=== PATIENT | female | born 1985 | race African-American/Black ===

== ENCOUNTER 2016-07-13 12:20 | Emergency (ER) | payer OTHER ==
[~2016-07-13] VITALS: Ht 172.7 cm; Wt 65.8 kg
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
[2016-07-13] MEDS ORDERED: Morphine Sulfate 2mg/ml Inj IM ONE (14:30)
[2016-07-13] MEDS ORDERED: NAPROXEN500 M1 ORAL (17:05)
[2016-07-13] MEDS ORDERED: BACLOFEN10 MG ORAL (17:05)
[2016-07-13 17:19] VITALS: BP 120/80
--- NOTE | 2016-07-14 10:28 | Diagnostic Imaging Report ---
Indication: PAIN Technique: One view of the chest Comparison: none Findings: Lungs and pleural spaces are clear. Heart size is normal. Impression: No acute process
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
== END 2016-07-13 17:19 | disposition home or self-care (01) ==
LOC: EMR 13:26
DX: S89.92XA Unspecified injury of left lower leg, initial encounter (principal); V89.2XXA Person injured in unspecified motor-vehicle accident, traffic, initial encounter; Y93.9 Activity, unspecified; Y92.410 Unspecified street and highway as the place of occurrence of the external cause
CPT/HCPCS: 71010; 73562; 96372; 99284; J2270